=== PATIENT | female | born 1975 | race Hispanic/Latino ===

== ENCOUNTER 2016-05-21 07:38 | Emergency (ER) | payer MEDICAID ==
[2016-05-21 07:45] VITALS: BP 121/86; PULSE 122; RESP 19; TEMP 98.2
[2016-05-21 07:50] VITALS: O2SAT 98
[2016-05-21] MEDS ORDERED: Dexamethasone 4 mg/1 ml IM ONE (08:14)
--- NOTE | 2016-05-21 08:14 | ED PDOC ---
HPI: General Adult Time Seen by Provider: 05/21/16 08:00 Chief Complaint (Nursing): ENT Problem Chief Complaint (Provider): throat pain History Per: Patient History/Exam Limitations: no limitations Additional Complaint(s): 41yo female comes to the ED complaining of throat swelling for several days. Also reports sore throat on left more than right. She had a fever yesterday. States she took Chloraseptic over the weekend. Past Medical History Reviewed: Historical Data, Nursing Documentation, Vital Signs Vital Signs: Last Vital Signs Temp 98.2 F 05/21/16 07:45 Pulse 122 H 05/21/16 07:45 Resp 19 05/21/16 07:45 BP 121/86 05/21/16 07:45 Pulse Ox 98 05/21/16 09:26 - Medical History PMH: Denies: Chronic Kidney Disease Other PMH: murmur - Surgical History Surgical History: No Surg Hx - Family History Family History: States: Unknown Family Hx - Immunization History Hx Tetanus Toxoid Vaccination: No Hx Influenza Vaccination: No Hx Pneumococcal Vaccination: No - Home Medications Home Medications: Ambulatory Orders Medication Instructions Recorded Clindamycin [Cleocin] 150 mg PO TID #21 cap 05/21/16 Ibuprofen [Motrin Tab] 600 mg PO Q6 PRN #15 tab 05/21/16 - Allergies Allergies/Adverse Reactions: Allergies Allergy/AdvReac Type Severity Reaction Status Date / Time ct scan dye Allergy Mild RASH Uncoded 05/21/16 07:48 Review of Systems ROS Statement: Except As Marked, All Systems Reviewed And Found Negative Constitutional: Positive for: Fever ENT: Positive for: Throat Pain, Throat Swelling Physical Exam - Reviewed Nursing Documentation Reviewed: Yes Vital Signs Reviewed: Yes - Physical Exam Appears: Positive for: Well, Non-toxic, No Acute Distress Head Exam: Positive for: ATRAUMATIC, NORMAL INSPECTION, NORMOCEPHALIC Skin: Positive for: Warm, Dry Eye Exam: Positive for: EOMI, PERRL ENT: Positive for: Pharyngeal Erythema (with exudates), Other (Tonsils are symmetric. Bilateral tonsillar hypertrophy. Uvula is midline. ) Extremity: Positive for: Normal ROM Neurologic/Psych: Positive for: Alert, Oriented - ECG O2 Sat by Pulse Oximetry: 98 (RA) Pulse Ox Interpretation: Normal Medical Decision Making Medical Decision Makin Will start clindamycin, decadron, toradol. monitored 1hr, felt better, no trouble swallowing. DC from ED with Rx and instructions for followup. Disposition - Clinical Impression Clinical Impression: Pharyngitis - Patient ED Disposition Is Patient to be Admitted: No Counseled Patient/Family Regarding: Studies Performed, Diagnosis, Need For Followup - Disposition Referrals: Christopher Wilson MD [Staff Provider] - Disposition: Routine/Home Disposition Time: 09:30 Condition: STABLE Prescriptions: Clindamycin [Cleocin] 150 mg PO TID #21 cap Ibuprofen [Motrin Tab] 600 mg PO Q6 PRN #15 tab PRN Reason: Pain, Moderate (4-7) Instructions: Pharyngitis (ED) Additional Comments - Additional Comments Additional Comments: Scribe Attestation: Documented by Bolivar Henry acting as a scribe for Bill Ferris DO. Provider Scribe Attestation: All medical record entries made by the Scribe were at my direction and personally dictated by me. I have reviewed the chart and agree that the record accurately reflects my personal performance of the history, physical exam, medical decision making, and the department course for this patient. I have also personally directed, reviewed, and agree with the discharge instructions and disposition.
[2016-05-21] MEDS ORDERED: Dexamethasone 4 mg/1 ml ONE (08:22)
== END 2016-05-21 10:15 | disposition home or self-care (01) ==
LOC: H.ER 07:38
DX: J02.9 Acute pharyngitis, unspecified (principal)
CPT/HCPCS: 81025; 96372; 99283; J1100; J1885

== ENCOUNTER 2016-07-05 09:36 | Emergency (ER) | payer MEDICAID ==
[2016-07-05 10:13] VITALS: O2SAT 98
[2016-07-05] MEDS ORDERED: Amoxicillin-Clav 875-125 mg Tab PO STA (10:24)
[2016-07-05] MEDS ORDERED: Dexamethasone 4 mg/1 ml IM STA (10:24)
--- NOTE | 2016-07-05 10:28 | ED PDOC ---
HPI: CCC, URI, Sore Throat Time Seen by Provider: 07/05/16 10:12 Chief Complaint (Nursing): ENT Problem Chief Complaint (Provider): sore throat History Per: Patient Additional Complaint(s): 41 year old with no past medical history presents with sore throat for the past 5 days with fever as of this morning, Tmax 101. Patient is tolerating liquids but has moderate pain when swallowing. Patient did not take any meds for fever this morning. She states left side of throat hurts more than right side. Patient denies chest pain, SOB or CHAMBERS. Patient was seen in May for same complaint and was treated with clindamycin antibiotic. Symptoms did improve initially after the course of antibiotics in May. Past Medical History Reviewed: Historical Data, Nursing Documentation, Vital Signs Vital Signs: Last Vital Signs Temp 98.6 F 07/05/16 10:10 Pulse 118 H 07/05/16 10:10 Resp 20 07/05/16 10:10 BP 118/79 07/05/16 10:10 Pulse Ox 98 07/05/16 18:09 - Medical History PMH: No Chronic Diseases - Surgical History Surgical History: (x 3) - Family History Family History: States: No Known Family Hx - Living Arrangements Living Arrangements: With Family - Social History Current smoker - smoking cessation education provided: No Alcohol: None Drugs: Denies - Home Medications Home Medications: Ambulatory Orders Medication Instructions Recorded Clindamycin [Cleocin] 150 mg PO TID #21 cap 05/21/16 Ibuprofen [Motrin Tab] 600 mg PO Q6 PRN #15 tab 05/21/16 Amoxicillin/Clavulanate [Augmentin 1 tab PO BID #14 tab 07/05/16 875 MG-125 MG] Ibuprofen [Motrin] 600 mg PO Q6 PRN #15 tab 07/05/16 predniSONE [Prednisone] 20 mg PO BID #10 tab 07/05/16 - Allergies Allergies/Adverse Reactions: Allergies Allergy/AdvReac Type Severity Reaction Status Date / Time ct scan dye Allergy Mild RASH Uncoded 07/05/16 10:09 Curb-65 Severity Score - CURB-65 Severity Score Confusion: No Bun >19mg/dl (>7mmol/L): No Respiratory Rate greater than/equal to 30: No Systolic BP <90 or Diastolic BP less than/equal 60mmHg: No Age >64: No Curb-65 Score: 0 Percentage 30-day mortality: 0.6% Review of Systems ROS Statement: Except As Marked, All Systems Reviewed And Found Negative Constitutional: Positive for: Fever ENT: Positive for: Throat Pain, Throat Swelling Cardiovascular: Negative for: Chest Pain Respiratory: Negative for: Cough Gastrointestinal: Negative for: Nausea, Vomiting Neurological: Negative for: Headache, Dizziness Physical Exam - Reviewed Nursing Documentation Reviewed: Yes Vital Signs Reviewed: Yes - Physical Exam Appears: Positive for: Well Skin: Negative for: Rash Eye Exam: Positive for: Normal appearance, EOMI, PERRL ENT: Positive for: TM Is/Are (normal bilaterally), Pharyngeal Erythema, Tonsillar Exudate, Tonsillar Swelling (L > R) Cardiovascular/Chest: Positive for: Regular Rate, Rhythm Respiratory: Positive for: Normal Breath Sounds Extremity: Negative for: Pedal Edema Neurologic/Psych: Positive for: Alert, Oriented - Laboratory Results Result Diagrams: 07/05/16 11:30 07/05/16 11:30 Urine POC: Negative - ECG O2 Sat by Pulse Oximetry: 98 Pulse Ox Interpretation: Normal - Other Rad CT soft tissue neck with IV contrast X-Ray: Read By Radiologist X-Ray Interpretation: see below Medical Decision Making Medical Decision Makin41 year old with sore throat. Tonsillitis vs possible nga-tonsillar abscess. Plan: Blood culture Throat culture Rapid strep CBC CMP CT soft tissue neck with IV contrast IVF IV decadron PO motrin Patient has allergy to IV contrast dye, reaction is itchy rash with no SOB or throat discomfort. Case was d/w Dr. Ledezma, patient will be medicated with 50 gm IV benadryl and IV decadron prior to going to CT CT: IMPRESSION: Moderate enlargement of the left palatine tonsil. Focal hypodensity at the region of the left tonsil measures 2.5 x 2.8 suspicious for abscess or phlegmon. Moderate narrowing of the upper airway at the level of the tonsils. Mild upper neck lymphadenopathy left more than right. Patient tolerated CAT scan well, she denies any itchiness or rash. Case was discussed with ear, nose and throat specialist internal audit consultant, Dr. Ingram. He is aware of CT findings and states he will come to ED to see patient. IV Zosyn ordered. 6:30 pm: Dr. Ingram arrived at bedside. He performed bedside incision and drainage of peritonsillar abscess. Procedure was tolerated well by patient. Ascription given for Augmentin, Motrin and prednisone. Patient was instructed to take meds as directed and follow-up with Dr. Ingram in 1 week in his office. Disposition - Clinical Impression Clinical Impression: Strep throat, Peritonsillar abscess - Patient ED Disposition Is Patient to be Admitted: No Counseled Patient/Family Regarding: Studies Performed, Diagnosis, Need For Followup, Rx Given - Disposition Referrals: Tj Ingram MD [Staff Provider] - Disposition: Routine/Home Disposition Time: 18:53 Condition: STABLE Additional Instructions: Take rx meds as directed. Drink plenty of fluids and get plenty of rest. Call Dr. Ingram's office tomorrow to arrange for follow up visit for next week. Prescriptions: Amoxicillin/Clavulanate [Augmentin 875 MG-125 MG] 1 tab PO BID #14 tab Ibuprofen [Motrin] 600 mg PO Q6 PRN #15 tab PRN Reason: Pain, Moderate (4-7) predniSONE [Prednisone] 20 mg PO BID #10 tab Instructions: Peritonsillar Abscess (ED), Strep Throat (ED) Forms: [facility] ED School/Work Excuse Results - Lab Results Lab Results: 07/05/16 07/05/16 07/05/16 11:30 11:30 11:30 WBC 20.0 H RBC 4.53 Hgb 12.6 Hct 37.6 MCV 83.0 MCH 27.8 MCHC 33.5 RDW 14.6 H Plt Count 504 H MPV 8.0 Neut % (Auto) 85.8 H Lymph % (Auto) 8.3 L Peach % (Auto) 5.7 Eos % (Auto) 0.0 Baso % (Auto) 0.2 Neut # 17.1 H Lymph # 1.7 Peach # 1.1 H Eos # 0.0 Baso # 0.0 Neutrophils % (Manual) 86 H Lymphocytes % (Manual) 9 L Monocytes % (Manual) 5 Platelet Estimate Increased H Large Platelets Present RBC Morphology Normal Sodium 144 Potassium 3.7 Chloride 101 Carbon Dioxide 26 Anion Gap 20 BUN 9 Creatinine 0.6 L Est GFR ( Amer) > 60 Est GFR (Non-Af Amer) > 60 Random Glucose 94 Calcium 10.0 Total Bilirubin 0.7 AST 33 ALT 24 Alkaline Phosphatase 92 Total Protein 8.8 H Albumin 4.2 Globulin 4.6 H Albumin/Globulin Ratio 0.9 L Grp A Beta Strep Ag Positive H
[2016-07-05] MEDS ORDERED: Sodium Chloride 0.9% 1,000 ML IV STA (10:31)
[2016-07-05] MEDS ORDERED: Dexamethasone 4 mg/1 ml IV STA (10:31)
[2016-07-05] MEDS ORDERED: DiphenhydrAMINE 50 mg/ml Inj IV STA (11:04)
[2016-07-05] MEDS ORDERED: DiphenhydrAMINE 50 mg/ml Inj ONE (11:26)
[2016-07-05 11:56] LABS: BASO % 0.2 % (0.0-2.0); HEMATOCRIT 37.6 % (34.0-47.0); LYMPH # 1.7 K/uL (1.0-4.3); LYMPH % 8.3 % (20.0-40.0); MEAN CORPUSCULAR HEMOGLOBIN 27.8 pg (27.0-31.0); MEAN CORPUSCULAR HGB CONC 33.5 g/dL (33.0-37.0); MONO # 1.1 K/uL (0.0-0.8); MONO % 5.7 % (0.0-10.0); NEUT # 17.1 K/uL (1.8-7.0); NEUT % 85.8 % (50.0-75.0); PLATELET COUNT 504 K/uL (130-400); RED CELL DISTRIBUTION WIDTH 14.6 % (11.5-14.5)
[2016-07-05 12:00] LABS: ALB/GLOB RATIO 0.9 (1.0-2.1); ALKALINE PHOSPHATASE 92 U/L (38-126); ALT/SGPT 24 U/L (9-52); AST/SGOT 33 U/L (14-36); BILIRUBIN,TOTAL 0.7 mg/dl (0.2-1.3); BLOOD UREA NITROGEN 9 mg/dl (7-17); CARBON DIOXIDE 26 mmol/L (22-30); CHLORIDE 101 mmol/L (98-107); GFR AFRICAN-AMERICAN > 60; GLUCOSE,RANDOM 94 mg/dL (65-105); POTASSIUM 3.7 MMOL/L (3.6-5.0); SODIUM 144 mmol/l (132-148); TOTAL PROTEIN 8.8 G/DL (6.3-8.2)
[2016-07-05] MEDS ORDERED: Iohexol 300 100 ML IJ ONE (12:15)
[2016-07-05] MEDS ORDERED: Sodium Chloride 0.9% 50 ML IV ONE (12:15)
[2016-07-05 12:36] LABS: LARGE PLATELETS PRESENT; NEUTROPHIL 86 % (42-75); TOTAL CELLS COUNTED 100
--- NOTE | 2016-07-05 13:37 | CT ---
PROCEDURE: CT NECK WITH CONTRAST HISTORY: left side sore throat, possible abscess COMPARISON: None TECHNIQUE: CT of the neck with intravenous contrast. Coronal and sagittal reformats generated. Intravenous contrast dose: 95 cc of Omnipaque 300 Radiation dose: DLP 355.98 mGy-cm This CT exam was performed using one or more of the following dose reduction techniques: Automated exposure control, adjustment of the mA and/or kV according to patient size, and/or use of iterative reconstruction technique. FINDINGS: NASOPHARYNX: Mild asymmetrical thickening in the left side of the posterior nasopharynx is noted. SUPRAHYOID NECK: Moderate enlargement of the palatine tonsil left more than right. There is low-attenuation focal area at the region of the left tonsil measures 2.8 x 2.5 centimeter likely represent abscess or phlegmon at and adjacent to the left tonsil. There is narrowing of the airway at the oral pharynx due to enlarged left tonsil and associated phlegmon or abscess. INFRAHYOID NECK: Unremarkable larynx, hypopharynx, and supraglottic space. Vocal cords intact. MASS: None. GLANDS: Parotid and submandibular glands unremarkable. Normal size thyroid gland, without nodule. LYMPH NODES: Mildly enlarged upper neck lymph nodes left more than right likely reactive. CERVICAL SPINE: Moderate degenerative changes at the cervical spine. Osteophyte disc bulging/ herniation complex seen at C4-C5, C5-C6 and C6-C7. VASCULAR STRUCTURES: Unremarkable. OTHER FINDINGS: None. IMPRESSION: Moderate enlargement of the left palatine tonsil. Focal hypodensity at the region of the left tonsil measures 2.5 x 2.8 suspicious for abscess or phlegmon. Moderate narrowing of the upper airway at the level of the tonsils. Mild upper neck lymphadenopathy left more than right.
[2016-07-05] MEDS ORDERED: Piperacillin/Tazobact 3.375 gm Inj IV STA (13:46)
[2016-07-05] MEDS ORDERED: Lidocaine 2% w Epi 1:100,000 Inj IJ ONE (13:52)
[2016-07-05] MEDS ORDERED: Piperacillin/Tazobact 3.375 GM in Sodium Chloride 0.9% 100 ML IVPB SCH (14:00)
[2016-07-05] MEDS ORDERED: Piperacillin/Tazobact 3.375 gm Inj IVPB ONE (18:51)
[2016-07-05] MEDS ORDERED: Piperacillin/Tazobact 3.375 GM in Sodium Chloride 0.9% 100 ML IVPB STA (19:04)
[2016-07-05 19:16] VITALS: BP 118/74; PULSE 98; RESP 18; TEMP 98.9
--- NOTE | 2016-07-05 21:58 | OP ---
PROCEDURE DATE: 07/05/2016 PREOPERATIVE DIAGNOSIS: Left peritonsillar abscess. POSTOPERATIVE DIAGNOSIS: Left peritonsillar abscess. PROCEDURE: Incision and drainage of peritonsillar abscess. SIGNIFICANT FINDINGS: Left peritonsillar abscess. DESCRIPTION OF PROCEDURE: The patient was brought in room, patient was placed in a seated position. The left peritonsillar area was injected with lidocaine with epinephrine. A #11 blade was used to m stan an incision in the left peritonsillar area. Blunt dissection was done. Pus was coming out, locu lations were broken with the clamp. Bleeding was controlled with time. The patient tolerated the pr ocedure well. Tj Ingram MD cc: [id number] TT: 07/05/2016 21:57:37 jn
== END 2016-07-05 20:04 | disposition home or self-care (01) ==
LOC: H.ER 09:36
DX: J02.0 Streptococcal pharyngitis (principal); J36 Peritonsillar abscess; R50.9 Fever, unspecified